=== PATIENT | female | born 1995 | race Caucasian/White ===

== ENCOUNTER 2020-07-25 16:33 | Emergency (ER) | payer OTHER, SELFPAY ==
[2020-07-25 16:44] VITALS: BP 122/72; PULSE 112; RESP 20; TEMP 36.8; O2SAT 100
--- NOTE | 2020-07-25 17:08 | ED.FEMALEGU ---
HPI - Female Genitourinary General Chief complaint: Urogenital-Female Stated complaint: burning with urination/feels full bladder Time Seen by Provider: 07/25/20 17:00 Source: patient and RN notes reviewed Mode of arrival: ambulatory Limitations: no limitations History of Present Illness HPI Narrative: Patient presents today complaining of urinary frequency, urgency, dysuria, and suprapubic pressure since this morning. Denies fever, back pain, nausea or vomiting. She is currently breast-feeding a [id number] child. She has an IUD. She has tried no [id number] treatment prior to arrival.Last UTI was a few years ago. MD elicited complaint: dysuria Related Data Home Medications Medication Instructions Recorded Confirmed citalopram 20 mg PO DAILY 07/25/20 07/25/20 Allergies Allergy/AdvReac Type Severity Reaction Status Date / Time No Known Allergies Allergy Verified 07/25/20 16:48 Review of Systems Review of Systems: Narrative: CONSTITUTIONAL: Denies body aches, fever, chills, or sweats. EYES: Denies visual changes, redness, or discharge. ENT: Denies rhinorrhea, congestion, sore throat, or otalgia. CARDIOVASCULAR: Denies chest pain, palpitations, or edema. RESPIRATORY: Denies cough or dyspnea. GASTROINTESTINAL: Denies abdominal pain, nausea, vomiting, or diarrhea. GENITOURINARY: +Dysuria, urgency, frequency, suprapubic pressure. Denies hematuria SKIN: Denies rash, itching, or wounds. MUSCULOSKELETAL: Denies back pain, joint pain, or myalgia. NEUROLOGIC: Denies headache, numbness, tingling, or weakness. PSYCH: Denies depression or anxiety. PMFSH Comments At time of signature, I have reviewed and agree with nursing past medical, surgical, social and family history unless otherwise noted. Please see nursing chart for further information. There is no relevant family history pertinent to the presenting complaint Exam Narrative: Exam Narrative: GENERAL: Well-appearing, well-nourished, and in no acute distress. HEAD: Normocephalic, atraumatic. EYES: EOMI. No redness or drainage. Conjunctivae normal. ENT: Mucous membranes pink and moist. NECK: Normal AROM. CHEST: No respiratory distress. Clear to auscultation. HEART: Regular rate and rhythm. No murmur appreciated. Normal peripheral pulses. ABDOMEN: Soft, nontender, nondistended, normal active bowel sounds. EXTREMITIES: Normal range of motion. No edema. SKIN: Warm, dry, no rash. Capillary refill normal. Normal skin turgor. NEURO: No focal deficits. Alert and oriented x3. Gait steady. PSYCH: Normal affect. No signs of depression or anxiety. Course Vital Signs Vital signs: Vital Signs Temperature 98.2 F 07/25/20 16:44 Pulse Rate 112 H 07/25/20 16:44 Respiratory Rate 07/25/20 16:44 Blood Pressure 122/72 07/25/20 16:44 Pulse Oximetry 100 07/25/20 16:44 Temperature 98.2 F 07/25/20 16:44 Pulse Rate 112 H 07/25/20 16:44 Respiratory Rate 07/25/20 16:44 Blood Pressure 122/72 07/25/20 16:44 Pulse Oximetry 100 07/25/20 16:44 Reviewed. Pt has been instructed to follow up with her PCP regarding her elevated blood pressure today. MDM - Female Genitourinary Differential Diagnosis Differential diagnosis: Likely urinary tract infection, vaginitis and cystitis Lab Data Attestation: I reviewed the patient's lab results. Labs: Urine Glucose Negative Reference Range: Negative Urine Bilirubin Negative Reference Range: Negative Urine Ketone Negative Reference Range: Negative Urine Specific [place] 1.025 Reference Range:1.001-1.035 Urine Blood 2+ Reference Range: Negative * * Urine pH 7.0 Reference Range: 5.0-9.0 Urine Protein Negative Reference Range: Negative Urine Urobilinogen 0.2 Refere
== END 2020-07-25 17:20 | disposition home or self-care (01) ==
PROVIDERS: Emergency Provider Nurse Practitioner
DX: N30.01 Acute cystitis with hematuria (principal)
CPT/HCPCS: 81003; 87077; 87086; 87088; 99213; G0463

== ENCOUNTER 2024-07-01 17:24 | Emergency (ER) | payer BC, SELFPAY ==
[2024-07-01 17:33] VITALS: BP 128/89; PULSE 94; RESP 18; TEMP 36.6; O2SAT 100
--- NOTE | 2024-07-01 17:33 | ED.NECK ---
HPI - Neck Pain/Injury General Chief Complaint: Neck Pain/Injury Stated Complaint: Neck Pain Time Seen by Provider: 07/01/24 18:06 Source: patient and RN notes reviewed Mode of arrival: ambulatory Limitations: no limitations History of Present Illness HPI Narrative: 28-year-old female presents concern for right-sided pain between the neck and shoulder. Reports that radiates up the neck. Reports she has a felt well today, she has felt very tired and has general malaise. She reports she took Tylenol this morning at work with no relief. She denies injury or trauma. Reports symptoms started when she woke up. She reports it hurts to turn neck. MD complaint: neck pain Related Data Allergies Allergy/AdvReac Type Severity Reaction Status Date / Time No Known Allergies Allergy Verified 07/25/20 16:48 Review of Systems Review of Systems: CONSTITUTIONAL: Reports malaise, fatigue. Denies chills, sweats, or fever. CARDIOVASCULAR: Denies chest pain, palpitations, or edema. RESPIRATORY: Denies cough or dyspnea. GASTROINTESTINAL: Denies nausea, vomiting SKIN: Reports warm raised area between right neck and shoulder MUSCULOSKELETAL: Reports neck pain NEUROLOGIC: Denies numbness, weakness, or headache. All systems reviewed & are unremarkable except as noted in HPI and below PMFSH Comments At time of signature, agree with nursing past medical, surgical, social and family history. There is no relevant family history pertinent to the presenting complaint Exam Narrative: GENERAL: Well-appearing, well-nourished, and in no acute distress. HEAD: Normocephalic, atraumatic. EYES: PERRLA and EOMI. NECK: Supple. No lymphadenopathy. CHEST: Clear to auscultation. No respiratory distress. HEART: Regular rate and rhythm. Distal pulses palpable and equal, cap refill <3 seconds MUSCULOSKELETAL: Normal range of motion and strength in all extremities. Normal sensation in dermatomal distributions with sensitivity to light touch and pain. No midline back tenderness to palpation. No paraspinal tenderness. Transfers from sitting to standing. SKIN: Warm, dry, no rash. No ecchymosis. Approximately 15 cm x 8 cm raised area of erythema, induration, warmth noted above the right trapezius muscle NEURO: No focal deficits. Alert and oriented x3. Reflexes intact. Normal gait. PSYCH: Normal mood and affect Course Course Emergency Course: Patient is aware of diagnosis, understands and agrees to treatment plan. Anticipatory guidance given. Patient agrees to follow-up as directed and is aware of reasons to seek care at the emergency department. Portions of this record may have been created with voice recognition software Level of Care: Express Care Visit Vital Signs Vital signs: Vital Signs Temperature 98 F 07/01/24 17:33 Pulse Rate 94 07/01/24 17:33 Respiratory Rate 18 07/01/24 17:33 Blood Pressure 128/89 07/01/24 17:33 Pulse Oximetry 100 07/01/24 17:33 Oxygen Delivery Room Air 07/01/24 17:33 Temperature 98 F 07/01/24 17:33 Pulse Rate 94 07/01/24 17:33 Respiratory Rate 18 07/01/24 17:33 Blood Pressure 128/89 07/01/24 17:33 Pulse Oximetry 100 07/01/24 17:33 Oxygen Delivery Room Air 07/01/24 17:33 Reviewed. MDM - Neck Pain/Injury MDM Narrative Medical decision making narrative: I evaluated this patient in the express care. History is obtained from patient who is an independent historian and physical exam was performed.? Available medical records were reviewed. ? Exam findings and relevant testing show no acute concerns or changes; patient is non-toxic appearing and is in no distress. ? Differential diagnosis and treatment plan were discussed with the patient. Patient agrees with discussion and after shared medical decision making agrees with plan of care. All questions were answered to the patient's satisfaction. Patient is appropriate for outpatient treatment and follow-up. Critical Care Time
== END 2024-07-01 18:21 | disposition home or self-care (01) ==
PROVIDERS: Emergency Provider Nurse Practitioner; PCP Family Medicine
DX: L03.221 Cellulitis of neck (principal)
CPT/HCPCS: 99213; G0463